=== PATIENT | male | born 1970 ===

== ENCOUNTER 2023-11-05 22:18 | Emergency (ER) | payer OTHER ==
[2023-11-05] MEDS: Diphtheria,Pertussis(Acell),Tetanus Vaccine 0.5 ML Syringe IM ONE (23:12)
== END 2023-11-05 23:25 | disposition home or self-care (01) ==
LOC: JP.ED 22:18
DX: S61.210A Laceration without foreign body of right index finger without damage to nail, initial encounter (principal); Z23 Encounter for immunization; V49.9XXA Car occupant (driver) (passenger) injured in unspecified traffic accident, initial encounter
CPT/HCPCS: 12001; 90471; 90715; 99284-25